=== PATIENT | female | born 1950 | race Caucasian/White ===

== ENCOUNTER 2017-11-29 12:16 | Day surgery (SDC) | payer OTHER, BC ==
[~2017-11-29] VITALS: Ht 172.7 cm; Wt 117.9 kg
[~2017-11-29 12:16] MED LIST: ALL DAY ALLERGY10 M3 PO; ASPIRIN81 M2 PO; B-COMPLEX-VITA1 EACH PO; CYMBALTA30 MG PO; FISH OIL 1,2001 EAC4 PO; GLUCOSA-CHOND-1 EACH PO; HYDROCORTISONE30 G1 TP; LIPITOR40 MG PO; NIZORAL 2% CREA15 GM TP; OMEPRAZOLE40 M1 PO; SINGULAIR10 MG PO; SYNTHROID50 MCG PO; VITAMIN C1000 MG PO; VITAMIN D31000 UNIT PO
[2017-11-29 13:05] LABS: INTER. NORMALIZED RATIO 0.9
[2017-11-29 13:08] LABS: PTT 30.4 SEC (25-37)
[2017-11-29 13:10] LABS: ALBUMIN 4.5 g/dL (3.2-4.8); CHLORIDE 105 mEq/L (99-109); POTASSIUM 4.5 mEq/L (3.7-5.4); SODIUM 141 mEq/L (136-147)
[2017-11-29 13:13] LABS: GLUCOSE 103 mg/dL (70-99); TOTAL PROTEIN 6.9 g/dL (6.4-8.3)
[2017-11-29 13:15] LABS: TOTAL BILIRUBIN 0.9 mg/dL (0.0-1.0)
[2017-11-29 13:16] LABS: ALKALINE PHOSPHATASE 111 IU/L (3-129); CREATININE 0.8 mg/dL (0.6-1.3); GFR ESTIMATE (CALCULATED) > 59 mL/min/
[2017-11-29 13:17] LABS: UREA NITROGEN (BUN) 13 mg/dL (9-23)
[2017-11-29 13:18] LABS: AST (GOT) 27 IU/L (2-34)
[2017-11-29 13:19] LABS: ALT (GPT) 53 IU/L (3-49)
[2017-11-29 13:24] VITALS: BP 127/78
[2017-11-29 16:00] VITALS: BP 147/77
[2017-11-29 17:15] VITALS: BP 150/75
== END 2017-11-29 17:25 | disposition home or self-care (01) ==
LOC: SDC 12:16
PROVIDERS: Thoracic Surgery (Cardiothoracic Vascular Surgery)
PROC: 0B9H8ZX Drainage of Lung Lingula, Via Natural or Artificial Opening Endoscopic, Diagnostic (ICD-10-PCS; principal; 2017-11-29)
DX: R91.8 Other nonspecific abnormal finding of lung field (principal); R05 Cough; Z85.820 Personal history of malignant melanoma of skin; J45.909 Unspecified asthma, uncomplicated; E03.9 Hypothyroidism, unspecified; Z86.19 Personal history of other infectious and parasitic diseases; M19.90 Unspecified osteoarthritis, unspecified site; E80.20 Unspecified porphyria; Z87.891 Personal history of nicotine dependence; Z90.49 Acquired absence of other specified parts of digestive tract; Z90.710 Acquired absence of both cervix and uterus; Z88.0 Allergy status to penicillin; Z88.1 Allergy status to other antibiotic agents; Z88.4 Allergy status to anesthetic agent; Z91.040 Latex allergy status; Z80.3 Family history of malignant neoplasm of breast; Z82.3 Family history of stroke; Z82.49 Family history of ischemic heart disease and other diseases of the circulatory system; Z83.3 Family history of diabetes mellitus; Z80.8 Family history of malignant neoplasm of other organs or systems; Z83.79 Family history of other diseases of the digestive system
CPT/HCPCS: 71045; 80053; 85610; 85730; 86850; 86900; 86901; 87070; 87075; 87076; 87102; 87116; 87205; 87206; 88108; 88173; J2405; J3010; Q0175

== ENCOUNTER → 2018-03-13 | Outpatient (CLI) | payer MEDICARE, BC | END | disposition home or self-care (01) | LOC: CDC 15:40 | DX: Z01.810 Encounter for preprocedural cardiovascular examination (principal); R91.1 Solitary pulmonary nodule; R91.8 Other nonspecific abnormal finding of lung field; R93.8 Abnormal findings on diagnostic imaging of other specified body structures | CPT/HCPCS: 93000 ==

== ENCOUNTER 2018-03-21 21:30 | Inpatient (IN) | payer OTHER, BC ==
[~2018-03-21] VITALS: Ht 172.7 cm; Wt 117.9 kg
[~2018-03-21 21:30] MED LIST changes: +FLOVENT 11120 INHALA IH; +METAXALL800 MG PO; +PRILOSEC20 MG PO; +PROAIR RESPICL90 MCG IH
[2018-03-22] VITALS (10 sets, daily range): BP systolic 99–168; BP diastolic 57–85
[2018-03-22 06:32] LABS: PTT 29.2 SEC (25-37)
[2018-03-23] VITALS (21 sets, daily range): BP systolic 93–146; BP diastolic 54–92
[2018-03-23 05:34] LABS: HEMATOCRIT 36.5 % (36.0-46.0); MCH 29.8 PG (29.0-34.0); MCHC 33.4 G/DL (30.0-36.0); MCV 89.2 FL (83-99); PLATELET COUNT 282 K/uL (156-360); RBC DIS.WIDTH-CV 13.1 % (11.8-14.6); RBC DIS.WIDTH-SD 43.2 % (39-53); RED BLOOD COUNT 4.09 M/uL (3.80-5.20); WHITE BLOOD COUNT 14.4 K/uL (4.1-10.2)
[2018-03-23 05:35] LABS: HEMOGLOBIN 12.2 G/DL (11.9-15.5)
[2018-03-23 05:57] LABS: CHLORIDE 104 MEQ/L (99-109); CREATININE 0.8 MG/DL (0.6-1.3); GFR ESTIMATE (CALCULATED) > 59 mL/min/; GLUCOSE 132 mg/dL (70-99); POTASSIUM 5.2 MEQ/L (3.7-5.4); SODIUM 139 MEQ/L (136-147); UREA NITROGEN (BUN) 12 mg/dL (9-23)
[2018-03-24 04:50] VITALS: BP 135/66
[2018-03-24 07:54] VITALS: BP 144/75
[2018-03-24 12:17] VITALS: BP 155/72
[2018-03-24 17:11] VITALS: BP 140/82
[2018-03-24 19:53] VITALS: BP 165/81
[2018-03-25] VITALS (7 sets, daily range): BP systolic 133–161; BP diastolic 64–75
[2018-03-25 05:49] LABS: HEMATOCRIT 35.5 % (36.0-46.0); HEMOGLOBIN 11.7 G/DL (11.9-15.5); MCH 29.5 PG (29.0-34.0); MCV 89.6 FL (83-99); PLATELET COUNT 249 K/uL (156-360); RBC DIS.WIDTH-CV 12.9 % (11.8-14.6); RBC DIS.WIDTH-SD 42.3 % (39-53); RED BLOOD COUNT 3.96 M/uL (3.80-5.20); WHITE BLOOD COUNT 11.6 K/uL (4.1-10.2)
[2018-03-26 04:02] VITALS: BP 148/81
[2018-03-26 07:37] VITALS: BP 140/82
[2018-03-26 11:04] VITALS: BP 159/84
[2018-03-26 15:37] VITALS: BP 142/79
[2018-03-26 19:27] VITALS: BP 182/84
[2018-03-26 23:29] VITALS: BP 125/69
[2018-03-27 07:29] VITALS: BP 163/76
[2018-03-27 11:32] VITALS: BP 166/88
[2018-03-27 15:42] VITALS: BP 160/83
[2018-03-27] MEDS ORDERED: NORCO 5/3251 TABLET PO (17:44)
[2018-03-27] MEDS ORDERED: DOCUSATE SODIU100 MG PO (17:44)
== END 2018-03-27 19:04 | disposition home or self-care (01) | DRG 164 ==
LOC: ENRESERV 21:30 → 4WEST 03-22 05:42 → 2SOUTH 03-22 05:42 → 3EAST 03-22 05:42 → ENRESERV 03-22 09:23 → 2SOUTH 03-22 10:01 → ENRESERV 03-22 13:26 → 4WEST 03-22 14:15 → ENRESERV 03-23 15:50 → 4WEST 03-23 15:50 → ENRESERV 03-23 16:25 → 3EAST 03-23 18:31
PROVIDERS: Surgery; Thoracic Surgery (Cardiothoracic Vascular Surgery)
DX: C34.12 Malignant neoplasm of upper lobe, left bronchus or lung (principal); Z87.891 Personal history of nicotine dependence; E66.9 Obesity, unspecified; Z68.39 Body mass index [BMI] 39.0-39.9, adult; E03.9 Hypothyroidism, unspecified; F10.21 Alcohol dependence, in remission; Z80.3 Family history of malignant neoplasm of breast; Z90.49 Acquired absence of other specified parts of digestive tract; Z90.710 Acquired absence of both cervix and uterus; Z85.820 Personal history of malignant melanoma of skin; Z83.3 Family history of diabetes mellitus; J44.9 Chronic obstructive pulmonary disease, unspecified; E78.5 Hyperlipidemia, unspecified; J98.11 Atelectasis; Z86.19 Personal history of other infectious and parasitic diseases
CPT/HCPCS: 71045; 71046; 80048; 85027; 85610; 85730; 86850; 86900; 86901; 86920; 87641; 88305; 88309; 88341 TC; 88342 TC; 94010; 94640; 94640 76; 94760; 94799; 97530 GP; 99202; J0131; J0690; J1100; J1200; J1644; J1885; J2250; J2405; J2710; J3010; J7050; J7120; J7643; S0020